=== PATIENT | male | born 2000 | race African-American/Black ===

== ENCOUNTER 2023-07-12 23:30 | Emergency (ER) | payer OTHER ==
[2023-07-12 23:52] VITALS: BP 135/84; O2SAT 100
--- NOTE | 2023-07-12 23:54 | ED Physician Documentation ---
PD HPI UPPER EXT INJURY - Stated complaint Stated Complaint: LT HAND INJ - Chief complaint Chief Complaint: Ext Problem - History obtained from History obtained from: Patient - Additonal information Additional information: HPI from patient. Patient sustained injury to left middle finger yesterday and was T+R from ED. Patient says he was told to return to ED within 24 hours for wound check. As he was closer to [facility] ED, he presents at this time for wound check. He has no c/o. PD PAST MEDICAL HISTORY - Past Medical History Past Medical History: No - Past Surgical History Past Surgical History: No - Allergies Allergies/Adverse Reactions: Allergies Allergy/AdvReac Type Severity Reaction Status Date / Time No Known Drug Allergies Allergy Verified 07/12/23 23:49 - Social History Does the pt smoke?: No Smoking Status: Never smoker Does the pt drink ETOH?: No Does the pt have substance abuse?: No - Immunizations Immunizations are current?: Yes - POLST Patient has POLST: No PD ED PE NORMAL - Vitals Vital signs reviewed: Yes - General General: Alert and oriented X 3, No acute distress, Well developed/nourished - Extremities Extremities: Other (dressing on left middle digit taken down. Nail is missing. sutures in place. no bleeding, no erythema, no discharge) Results - Vitals Vitals: Vital Signs - 24 hr 07/12/23 23:46 Temperature 37.0 C Heart Rate 68 Respiratory 18 Rate Blood Pressure 135/84 H O2 Saturation 100 Oxygen O2 Source Room air PD Medical Decision Making - ED course Complexity details: reviewed old records, considered differential, d/w patient ED course: Unclear why patient presents for next-day wound check unless there was/were particular concerns at time of d/c planning from ED. Thus, I requested the ED records from yesterday's ED visit. These were faxed to [facility] ED and reviewed by me. The records make no mention of next-day wound check recommendation but do note in chart and d/c instructions that patient is to have sutures removed in one week (07/19). I reviewed this recommendation with the patient. The finger is redressed with finger splint put back in place. Departure - Departure Disposition: 01 Home, Self Care Clinical Impression: Encounter for re-check of laceration wound Condition: Good Instructions: ED Sutr Check No Infec Comments: The area of injury looks like it is healing appropriately at this time. As per the instructions given by the [facility]) emergency department physician, you should have the stitches removed on 07/19. You can see your primary care provider to have the stitches removed, or go to an urgent care facility, a walk-in clinic, or any emergency department. Forms: PCP List Discharge Date/Time: 07/13/23 01:00
== END 2023-07-13 01:00 | disposition home or self-care (01) ==
LOC: ED 23:30
DX: S69.92XD Unspecified injury of left wrist, hand and finger(s), subsequent encounter (principal); X58.XXXD Exposure to other specified factors, subsequent encounter
CPT/HCPCS: 99281; 99282